=== PATIENT | female | born 1975 | race Caucasian/White ===

== ENCOUNTER → 2018-02-16 | Outpatient (CLI) | payer OTHER ==
[~2018-02-16] MED LIST: ALBIPROI INH; ALBU.083IS IH; ALBU90I INH; ALBU90OI INH; ALBU90OI6 INH; ARIP30 PO; AZIT250 PO; AZIT500 PO; BIRTH CONTROL; BUPR75 PO; BUSP5 PO; CEPH500 PO; CIPR500 PO; CLAR500 PO; CLIN150 PO; CODBUTACEC; CODGUAEL PO; CRUTCH4 USE; CYCL10 PO; DIAZ5 PO; DOXY100 PO; EFFEXOR; FAMO20 PO; GABA100 PO; HYDACE5 PO; IBUP200; IBUP600 PO; IBUP800 PO; LAMO100 PO; LITH300C PO; LORA10ER PO; METPRE4DP PO; MONT4 PO; MONT5TCH PO; NAPR500 PO; NORETHTP; OXCA150 PO; OXYACE5T PO; OXYACE7.5T PO; PERM5TC TOP; PRED20 PO; PROCODE120 PO; PROM25 PO; Percocet 5-3251 EACH PO; QUET100; RXALBOI INH; RXCEPH500 PO; RXCLIN PO; RXCODGUASY PO; RXCYCL10 PO; RXHYDACE PO; RXLORA1 PO; RXOXYACE PO; SULPREOPSO OD; SULTRIDS; TRAM50 PO; TRAZ150T57 PO; Ultram50 MG PO; [UNRECOGNIZED DRUG - CODE]; [UNRECOGNIZED DRUG - OTHER]
== END | disposition home or self-care (01) ==
LOC: LAB 09:42 → LAB SHORT 09:42
PROVIDERS: Obstetrics & Gynecology
DX: Z01.419 Encounter for gynecological examination (general) (routine) without abnormal findings (principal)
CPT/HCPCS: 87624; G0123

== ENCOUNTER → 2019-06-12 | Outpatient (CLI) | payer OTHER ==
[2019-06-12 14:25] LABS: BASOPHILS ABSOLUTE AUTO 0.07 K/mm3 (0.00-0.23); BASOPHILS PERCENT AUTO 1 % (0-2); EOSINOPHILS ABSOLUTE AUTO 0.16 K/mm3 (0.00-0.68); EOSINOPHILS PERCENT AUTO 2 % (0-6); Hematocrit 43.2 % (33.0-51.0); Hemoglobin 14.5 g/dL (11.5-16.0); IMMATURE GRAN ABSOLUTE AUTO 0.02 K/mm3 (0.00-0.10); IMMATURE GRAN PERCENT AUTO 0 % (0-1); LYMPHOCYTES ABSOLUTE AUTO 3.44 K/mm3 (0.84-5.20); LYMPHOCYTES PERCENT AUTO 35 % (21-46); MONOCYTES ABSOLUTE AUTO 0.62 K/mm3 (0.16-1.47); MONOCYTES PERCENT AUTO 6 % (4-13); Mean Corpuscular HGB 30.1 pg (26.0-34.0); Mean Corpuscular HGB Conc 33.6 g/dL (31.5-36.5); Mean Corpuscular Volume 90 fL (80-100); Mean Platelet Volume 10.7 fL (9.1-12.4); NEUTROPHILS ABSOLUTE AUTO 5.65 K/mm3 (1.96-9.15); NEUTROPHILS PERCENT AUTO 57 % (41-73); Platelet Count 380 K/mm3 (150-400); RDW Coefficient Variation 13.5 % (11.7-14.2); RDW Standard Deviation 43.9 fL (35.1-46.3); Red Blood Cell Count 4.82 M/mm3 (3.80-5.20); White Blood Cell Count 9.96 K/mm3 (4.00-11.30)
[2019-06-12 14:52] LABS: Anion Gap 10 mmol/L (6-16); Blood Urea Nitrogen 11 mg/dL (8-24); Bun/Creatinine Ratio 14.3 (12.0-20.0); CO2, Blood 27 mmol/L (21-32); Calcium, Blood 8.8 mg/dL (8.5-10.1); Chloride, Blood 107 mmol/L (98-108); Creatinine, Blood 0.77 mg/dL (0.40-1.00); Glomerular Filtration Rate >60 (60-); Glucose, Blood 144 mg/dL (70-99); Potassium, Blood 4.1 mmol/L (3.5-5.5); Sodium, Blood 144 mmol/L (136-145); Thyroid Stimulating Hormone 2.544 uIU/mL (0.360-4.800)
[2019-06-12 17:37] LABS: Follicle Stimulating Hormone 5.6 mIU/ml
== END | disposition home or self-care (01) ==
LOC: LAB SHORT 14:19 → LAB EV 14:19
PROVIDERS: Family Medicine
DX: R61 Generalized hyperhidrosis (principal)
CPT/HCPCS: 80048; 83001; 83002; 84443; 85025

== ENCOUNTER 2020-07-08 13:26 | Inpatient (IN) | payer OTHER ==
[~2020-07-08] VITALS: Ht 167.6 cm; Wt 125.6 kg
[2020-07-08 15:00] LABS: BASOPHILS ABSOLUTE AUTO 0.14 K/mm3 (0.00-0.23); BASOPHILS PERCENT AUTO 1 % (0-2); Hematocrit 44.3 % (33.0-51.0); Hemoglobin 14.7 g/dL (11.5-16.0); LYMPHOCYTES ABSOLUTE AUTO 1.11 K/mm3 (0.84-5.20); LYMPHOCYTES PERCENT AUTO 7 % (21-46); MONOCYTES PERCENT AUTO 3 % (4-13); Mean Corpuscular HGB 28.5 pg (26.0-34.0); Mean Corpuscular HGB Conc 33.2 g/dL (31.5-36.5); Mean Corpuscular Volume 86 fL (80-100); Mean Platelet Volume 11.3 fL (9.1-12.4); NRBC ABSOLUTE 0.02 K/mm3 (0.00-0.02); NRBC Auto 0.1 /100 WBC (0.0-0.2); Platelet Count 380 K/mm3 (150-400); Red Blood Cell Count 5.16 M/mm3 (3.80-5.20)
[2020-07-08 15:04] LABS: EOSINOPHILS ABSOLUTE AUTO 0.01 K/mm3 (0.00-0.68); EOSINOPHILS PERCENT AUTO 0 % (0-6); IMMATURE GRAN ABSOLUTE AUTO 0.03 K/mm3 (0.00-0.10); IMMATURE GRAN PERCENT AUTO 0 % (0-1); NEUTROPHILS ABSOLUTE AUTO 13.91 K/mm3 (1.96-9.15); NEUTROPHILS PERCENT AUTO 89 % (41-73)
[2020-07-08 15:27] LABS: Troponin I <0.015 ng/mL (0.000-0.040)
[2020-07-08 15:29] LABS: Source, Urine Clean Catch
[2020-07-08 15:31] LABS: Alanine Aminotransfer (ALT/SGP 33 U/L (12-78); Albumin, Blood 2.5 g/dL (3.4-5.0); Albumin/Globulin Ratio 0.6 (0.8-1.8); Alk Phos 124 U/L (50-136); Anion Gap 11 mmol/L (6-16); Aspartate Aminotrans (AST/SGOT 14 U/L (12-37); Bilirubin, Total 5.2 mg/dL (0.1-1.0); Blood Urea Nitrogen 18 mg/dL (8-24); Bun/Creatinine Ratio 28.6 (12.0-20.0); CO2, Blood 24 mmol/L (21-32); Calcium, Blood 10.4 mg/dL (8.5-10.1); Chloride, Blood 102 mmol/L (98-108); Creatinine, Blood 0.63 mg/dL (0.40-1.00); Globulin, Blood 4.1 g/dL (2.2-4.0); Glomerular Filtration Rate >60 (60-); Glucose, Blood 250 mg/dL (70-99); Potassium, Blood 3.2 mmol/L (3.5-5.5); Sodium, Blood 137 mmol/L (136-145); Total Protein, Blood 6.6 g/dL (6.4-8.2)
[2020-07-08 15:33] LABS: Blood, Urine 2+ (Neg); Glucose Qualitative, Urine 4+ (Neg); Ketones, Urine 2+ (Neg); Leukocyte Esterase, Urine 1+ (Neg); Nitrite, Urine Pos (Neg); Protein, Urine 3+ (Neg); Specific Gravity, Urine 1.015 (1.003-1.022); Urobilinogen, Urine 2+ (Normal)
[2020-07-08 15:41] LABS: Bilirubin, Urine 3+ (Neg)
[2020-07-08 16:06] LABS: Appearance, Urine Hazy (Clear); Color, Urine Orange (P-Yellow)
[2020-07-08 16:07] LABS: Hyaline Casts 0-2 /lpf (0-2)
[2020-07-08 16:07] LABS: BAND PERCENT MAN 7 % (0-8); BASOPHILS PERCENT MAN 0 % (0-2); EOSINOPHILS ABSOLUTE MAN 0.15 K/mm3 (0.00-0.68); EOSINOPHILS PERCENT MAN 1 % (0-6); LYMPHOCYTES ABSOLUTE MAN 1.25 K/mm3 (0.84-5.20); LYMPHOCYTES PERCENT MAN 8 % (21-46); MONOCYTES ABSOLUTE MAN 0.47 K/mm3 (0.16-1.47); MONOCYTES PERCENT MAN 3 % (4-13); NEUTROPHILS ABSOLUTE MAN 13.81 K/mm3 (1.96-9.15); SEG NEUTROPHILS PERCENT MAN 81 % (41-73); TOTAL CELLS COUNTED 100
[2020-07-08 16:08] LABS: Bacteria Mod /hpf; Mucus Light (0-Heavy); Squamous Epithelial Cells Few /hpf (Few)
[2020-07-08 18:10] LABS: Bilirubin, Direct 3.7 mg/dL (0.0-0.3); Bilirubin, Indirect 1.5 mg/dL (0.1-0.7); Bilirubin, Total 5.2 mg/dL (0.1-1.0)
[2020-07-08] MEDS ORDERED: CALCIUM CIT 311 EACH PO (20:11)
[2020-07-08] MEDS ORDERED: IRON18 MG PO (20:12)
[2020-07-08] MEDS ORDERED: CLEM1.34 PO (20:13)
[2020-07-08] MEDS ORDERED: Hair, Skin & N1 EACH PO (20:14)
[2020-07-08] MEDS ORDERED: MELO7.5 PO (20:15)
[2020-07-08] MEDS ORDERED: METO10 PO (20:16)
[2020-07-08] MEDS ORDERED: FAMO20 PO (20:17)
[2020-07-09 03:43] LABS: Hematocrit 40.8 % (33.0-51.0); Hemoglobin 13.6 g/dL (11.5-16.0); LYMPHOCYTES PERCENT AUTO 6 % (21-46); MONOCYTES ABSOLUTE AUTO 0.77 K/mm3 (0.16-1.47); MONOCYTES PERCENT AUTO 5 % (4-13); Mean Corpuscular HGB 28.5 pg (26.0-34.0); Mean Corpuscular HGB Conc 33.3 g/dL (31.5-36.5); Mean Corpuscular Volume 85 fL (80-100); Mean Platelet Volume 10.9 fL (9.1-12.4); Platelet Count 361 K/mm3 (150-400); RDW Standard Deviation 43.9 fL (35.1-46.3); Red Blood Cell Count 4.78 M/mm3 (3.80-5.20); White Blood Cell Count 14.32 K/mm3 (4.00-11.30)
[2020-07-09 03:46] LABS: BASOPHILS ABSOLUTE AUTO 0.01 K/mm3 (0.00-0.23); BASOPHILS PERCENT AUTO 0 % (0-2); EOSINOPHILS ABSOLUTE AUTO 0.04 K/mm3 (0.00-0.68); EOSINOPHILS PERCENT AUTO 0 % (0-6); IMMATURE GRAN ABSOLUTE AUTO 0.25 K/mm3 (0.00-0.10); IMMATURE GRAN PERCENT AUTO 2 % (0-1); NEUTROPHILS ABSOLUTE AUTO 12.45 K/mm3 (1.96-9.15); NEUTROPHILS PERCENT AUTO 87 % (41-73)
[2020-07-09 04:03] LABS: Alanine Aminotransfer (ALT/SGP 27 U/L (12-78); Albumin, Blood 2.1 g/dL (3.4-5.0); Albumin/Globulin Ratio 0.6 (0.8-1.8); Alk Phos 107 U/L (50-136); Anion Gap 10 mmol/L (6-16); Aspartate Aminotrans (AST/SGOT 13 U/L (12-37); Bilirubin, Total 5.2 mg/dL (0.1-1.0); Blood Urea Nitrogen 17 mg/dL (8-24); Bun/Creatinine Ratio 32.4 (12.0-20.0); CO2, Blood 21 mmol/L (21-32); Calcium, Blood 8.9 mg/dL (8.5-10.1); Chloride, Blood 106 mmol/L (98-108); Creatinine, Blood 0.53 mg/dL (0.40-1.00); Globulin, Blood 3.7 g/dL (2.2-4.0); Glomerular Filtration Rate >60 (60-); Glucose, Blood 160 mg/dL (70-99); Potassium, Blood 3.7 mmol/L (3.5-5.5); Sodium, Blood 137 mmol/L (136-145); Total Protein, Blood 5.8 g/dL (6.4-8.2)
[2020-07-09 04:12] LABS: BAND PERCENT MAN 36 % (0-8); BASOPHILS PERCENT MAN 0 % (0-2); EOSINOPHILS PERCENT MAN 0 % (0-6); LYMPHOCYTES ABSOLUTE MAN 0.71 K/mm3 (0.84-5.20); LYMPHOCYTES PERCENT MAN 5 % (21-46); METAMYELOCYTE ABSOLUTE MAN 0.57 K/mm3 (0.00-0.00); METAMYELOCYTE PERCENT MAN 4 % (0-0); MONOCYTES ABSOLUTE MAN 0.57 K/mm3 (0.16-1.47); MONOCYTES PERCENT MAN 4 % (4-13); NEUTROPHILS ABSOLUTE MAN 12.45 K/mm3 (1.96-9.15); SEG NEUTROPHILS PERCENT MAN 51 % (41-73); TOTAL CELLS COUNTED 100
--- NOTE | 2020-07-09 06:15 | NUR ---
HOSPITALIST NOTIFIED HOSPITALIST NOTIFIED ABOUT LACTIC ACID INCREASE FROM 2.3 TO 2.7, TACHYCARDIA THROUGH THE NIGHT, CONFUSION & DECREASED URINE OUTPUT. PT IS CURRENTLY RECIEVING NS W/20 MEQ KCL @ 150 ML/HR. NO NEW ORDERS AT THIS TIME, NO REPEAT LACTIC WAS ORDERED. VSS, BED ALARM IS ON FOR SAFETY, PT ENC TO DECREASE PO INTAKE TO MINIMIZE ABD PAIN, BEDSIDE REPORT GIVEN TO DAY RN, CALL LIGHT IN REACH.
--- NOTE | 2020-07-09 10:23 | NUR ---
REPORT GIVEN TO BARRY AT [facility]; [facility] TRANSPORT TO ROOM PT LEFT AT 1017.
== END 2020-07-09 10:18 | disposition short-term general hospital (02) | DRG 862 ==
LOC: ER 13:26 → PCU 17:37
PROVIDERS: Physician Assistant; ADMIT Family Medicine
DX: T81.43XA Infection following a procedure, organ and space surgical site, initial encounter (principal); A41.9 Sepsis, unspecified organism; R65.20 Severe sepsis without septic shock; E87.2 Acidosis; Z68.41 Body mass index [BMI] 40.0-44.9, adult; Z90.3 Acquired absence of stomach [part of]; T81.44XA Sepsis following a procedure, initial encounter; E86.0 Dehydration; E66.9 Obesity, unspecified; Z88.0 Allergy status to penicillin; F90.9 Attention-deficit hyperactivity disorder, unspecified type; Z87.891 Personal history of nicotine dependence; E80.6 Other disorders of bilirubin metabolism
CPT/HCPCS: 36415; 51702; 71045; 74176; 76705; 80053; 81001; 82247; 82248; 83605; 83690; 84484; 85025; 87040; 87086; 93005; 93010; 96361-59; 96365-59; 96366-59; 96375-59; 99285-25; C9113; J1170; J1956; J2405; J3480; J7030; J7040; J7050; U0004